=== PATIENT | male | born 1970 | race African-American/Black ===

== ENCOUNTER 2023-12-11 12:54 | Outpatient (CLI) | payer MEDICAID | END 2023-12-11 12:55 | disposition home or self-care (01) | LOC: CSHERS 12:54 → CSHRAD 12:54 | PROVIDERS: ATTEND Nurse Practitioner Psychiatric/Mental Health | DX: R76.11 Nonspecific reaction to tuberculin skin test without active tuberculosis (principal) | CPT/HCPCS: 71045 ==

== ENCOUNTER 2024-08-11 16:48 | Emergency (ER) | payer MEDICAID, OTHER, SELFPAY ==
[2024-08-11] MEDS ORDERED: Bupivacaine PF 0.5% 30 ML VIAL ONE (18:03)
== END 2024-08-11 19:14 | disposition home or self-care (01) ==
LOC: CSHERS 16:48
DX: S60.446A External constriction of right little finger, initial encounter (principal); I10 Essential (primary) hypertension; F17.210 Nicotine dependence, cigarettes, uncomplicated; W49.04XA Ring or other jewelry causing external constriction, initial encounter
CPT/HCPCS: 99283; J0665

== ENCOUNTER 2025-08-10 13:14 | Outpatient (CLI) | payer MEDICAID | END 2025-08-10 13:15 | disposition home or self-care (01) | LOC: CSHRAD 13:14 | PROVIDERS: ATTEND Nurse Practitioner Family | DX: R76.11 Nonspecific reaction to tuberculin skin test without active tuberculosis (principal) | CPT/HCPCS: 71046 ==